=== PATIENT | male | born 1970 | race Caucasian/White ===

== ENCOUNTER 2017-11-18 02:42 | Day surgery (SDC) | payer BC ==
[~2017-11-18] VITALS: Ht 185.4 cm; Wt 90.7 kg
[~2017-11-18 02:42] MED LIST: ATOR20TA65 PO; GEMF600T91 PO; LISI-362 PO
[2017-11-18] MEDS ORDERED: PROPOFOL EMUL(*) 10MG/ML 20 ML 20 ML ONE ×2 (07:10→11:43)
[2017-11-18 09:04] VITALS: BP 144/88
[2017-11-18] MEDS ORDERED: NORMOSOL R SOLN(*) 1000 ML BAG 1,000 ML IV PRN (09:40)
[2017-11-18] MEDS ORDERED: LIDOCAINE/SOD BICARB 8.4% SYR ID ONE (09:40)
[2017-11-18 12:03] VITALS: BP 118/82
--- NOTE | 2017-11-18 12:13 | Short(Outpt) Discharge Summary ---
Discharge Summary Reason for Hosp/Final Diag: (1) Family history of colonic polyps Hospital Course & Plan: Colonoscopy with polyp x5 completed without problems. Departure Discharge to: Home, Self Care Discharge Instructions Home Meds Reported Medications Lisinopril (LISINOPRIL) 10 Mg Tablet, 10 MG PO QDAY, TAB 10/28/17 Atorvastatin Calcium (ATORVASTATIN CALCIUM) 20 Mg Tablet, 1 TAB PO QDAY, TAB 10/28/17 Gemfibrozil (GEMFIBROZIL) 600 Mg Tablet, 600 MG PO BID 10/28/17 Diet: Regular Activity: As Tolerated Special Instructions: Your colonoscopy was completed without problems and your prep was excellent (Good Job!!). I removed 5 small polyps from your colon and they were sent to pathology. My office will call you and let you know when your next colonoscopy should be (either 3 or 5 years depending on the polyps). MEME GARRIDO MD Nov 18, 2017 12:13
[2017-11-18 12:15] VITALS: BP 109/75
[2017-11-18 12:43] VITALS: BP 115/89
[2017-11-18 12:44] VITALS: BP 127/89
== END 2017-11-18 12:56 | disposition home or self-care (01) ==
LOC: OR 02:42
PROVIDERS: ATTEND Surgery
DX: Z12.11 Encounter for screening for malignant neoplasm of colon (principal); D12.0 Benign neoplasm of cecum; K63.5 Polyp of colon; K62.1 Rectal polyp; I10 Essential (primary) hypertension; E78.5 Hyperlipidemia, unspecified; F17.210 Nicotine dependence, cigarettes, uncomplicated; Z80.0 Family history of malignant neoplasm of digestive organs
CPT/HCPCS: 00811; 45385; 88305; J2704